=== PATIENT | male | born 1950 | race Hispanic/Latino ===

== ENCOUNTER 2021-01-27 09:36 | Outpatient (CLI) | payer MEDICARE, BC | END 2021-01-27 09:37 | disposition home or self-care (01) | LOC: BICULT 09:36 | PROVIDERS: ATTEND Physician Assistant Medical | DX: R10.13 Epigastric pain (principal); R19.7 Diarrhea, unspecified; R11.2 Nausea with vomiting, unspecified; R63.4 Abnormal weight loss; R16.0 Hepatomegaly, not elsewhere classified | CPT/HCPCS: 93975 ==

== ENCOUNTER 2021-01-30 08:30 | Outpatient (CLI) | payer MEDICARE, BC | END 2021-01-30 08:31 | disposition home or self-care (01) | LOC: BICCT 08:30 | PROVIDERS: ATTEND Internal Medicine Gastroenterology | DX: K76.9 Liver disease, unspecified (principal); R63.4 Abnormal weight loss; R10.13 Epigastric pain; R11.2 Nausea with vomiting, unspecified; R91.8 Other nonspecific abnormal finding of lung field | CPT/HCPCS: 71260; 74178 ==